=== PATIENT | female | born 1950 | race Two or more races ===

== ENCOUNTER 2025-02-23 07:00 | Day surgery (SDC) | payer OTHER, SELFPAY ==
[2025-02-22 11:08] VITALS: BMI 34.1
[2025-02-23] VITALS (13 sets, daily range): BP systolic 107–188; BP diastolic 63–120; PULSE 56–88; RESP 11–20; TEMP 36.5–36.8; O2SAT 96–100; BMI 345.3
[2025-02-23] MEDS: SODIUM CHLORIDE 0.9% 500 ML 500 ML 20 ML IV (10:36)
[2025-02-23] MEDS: hydrALAZINE INJ 20 MG/ML VIAL 5 MG IV (10:37)
[2025-02-23] MEDS: fentaNYL CIT INJ 50 mCg/ML AMP 2ML (ASD USE ONLY) IV (10:37)
[2025-02-23] MEDS: MIDAZOLAM INJ 1 MG/ML VIAL 2 ML (ASD USE ONLY) 2 MG IV (10:39)
== END 2025-02-23 11:50 | disposition home or self-care (01) ==
PROVIDERS: PCP Family Medicine; Referring Provider Internal Medicine Gastroenterology; Visit Provider Internal Medicine Gastroenterology
PROC: 0DBE8ZX Excision of Large Intestine, Via Natural or Artificial Opening Endoscopic, Diagnostic (ICD-10-PCS; CPT 45380; principal; 2025-02-23 07:30)
DX: D12.0 Benign neoplasm of cecum (principal); D12.2 Benign neoplasm of ascending colon; K64.8 Other hemorrhoids; K57.31 Diverticulosis of large intestine without perforation or abscess with bleeding
CPT/HCPCS: 45385; 45380; A4217; J0360; J2250; J3010; J7040